=== PATIENT | female | born 1995 | race American Indian/Alaskan Native ===

== ENCOUNTER 2019-05-21 07:51 | Observation (INO) | payer MEDICAID, OTHER ==
[2019-05-21] MEDS ORDERED: HYDROmorphone 1 MG/1 ML INJ IV ONE (08:23)
[2019-05-21] MEDS ORDERED: ONDANSETRON 4 MG/2 ML INJ IV ONE ×2 (08:23→13:51)
[2019-05-21] MEDS ORDERED: SODIUM CHLORIDE 0.9% 1000 ML 1,000 ML ONE (08:33)
[2019-05-21] MEDS ORDERED: SODIUM CHLORIDE 0.9% 1000 ML 1,000 ML IV ONE ×2 (08:46→14:45)
[2019-05-21 09:14] LABS: Basophils # (Auto) 0.1 K/mm3 (0.0-0.1); Basophils % (Auto) 0.4 % (0.0-1.8); Eosinophils # (Auto) 0.1 K/mm3 (0.0-0.4); Eosinophils % (Auto) 0.4 % (0.0-4.3); Hematocrit 38.6 % (30.3-42.9); Hemoglobin 13.4 gm/dl (10.1-14.3); Lymphocytes # (Auto) 1.6 K/mm3 (1.2-5.4); Lymphocytes % (Auto) 10.9 % (13.4-35.0); Mean Corpuscular HGB Conc 35 % (30-34); Mean Corpuscular Volume 91 fl (79-97); Monocytes # (Auto) 0.7 K/mm3 (0.0-0.8); Monocytes % (Auto) 4.8 % (0.0-7.3); Platelet Count 311 K/mm3 (140-440); Red Blood Count 4.27 M/mm3 (3.65-5.03); Red Cell Distribution Width 13.6 % (13.2-15.2)
[2019-05-21 09:37] LABS: Alanine Aminotransferase 12 units/L (7-56); Albumin 5.3 g/dL (3.9-5); BUN/Creatinine Ratio 23; Blood Urea Nitrogen 16 mg/dL (7-17); Calcium 9.7 mg/dL (8.4-10.2); Hemolysis Index 15
--- NOTE | 2019-05-21 12:37 | Ultrasound Report ---
ULTRASOUND ABDOMEN, COMPLETE INDICATION: abd pain COMPARISON: None available. FINDINGS: Pancreas: Normal. Abdominal Aorta: Normal. IVC: Normal. Liver: Normal. Gallbladder: There are several small stones in the gallbladder. There is borderline gallbladder wall edema. No pericholecystic fluid. Bile ducts: Normal. Common Bile Duct measures 3 mm. Right Kidney: Normal. Left Kidney: Normal. Spleen: Normal. Free fluid: None. Additional Findings: None. IMPRESSION: 1. Cholelithiasis with borderline gallbladder wall edema. This could be seen in the setting of cholec ystitis. However, no pericholecystic fluid or common duct dilatation. Signer Name: Fawad Davison MD Signed: 05/21/2019 12:33 PM Workstation Name: [id number]
[2019-05-21 12:50] LABS: Bacteria,Urine 1+ /HPF (Negative); Bilirubin,Urine NEG (Negative); Blood,Urine LG (Negative); Color,Urine Yellow (Yellow); Mucus,Urine FEW /HPF; Protein,Urine <15 mg/dL mg/dL (Negative); Urobilinogen,Urine < 2.0 mg/dL (<2.0)
[2019-05-21 12:51] LABS: HCG Qualitative,Urine Negative (Negative)
[2019-05-21] MEDS ORDERED: PIPERACIL/TAZOBACTA 4.5/NS 100 4.5 GM/100 ML VIAL IV ONE (13:15)
[2019-05-21] MEDS ORDERED: MORPHINE 4 MG/1 ML INJ IV ONE (13:51)
--- NOTE | 2019-05-21 14:40 | Emergency Department Report ---
HPI - General Chief Complaint: Abdominal Pain Time Seen by Provider: 05/21/19 14:29 - HPI HPI: Room 32 The patient is a 23-year-old female presenting with a chief complaint of abdominal pain. The patient states after eating [place] dinner last night she developed some pain in the right upper quadrant and left upper quadrant of her abdomen described as a pressure in nature. Patient admits to nausea and vomiting but denies diarrhea. Patient missed a subjective fever. The patient has history of gallstones a states that the pain feels consistent with previous bouts but it is much worse than it's been in the past. Patient was administered to pain medication prior to my evaluation and currently gives her pain a score of 0/10 Location: [See above] Duration: [See above] Quality: [See above] Severity: [See above] Timing: [See above] Context: [See above] Modifying factors: [See above] Associated signs and symptoms: [see above] ED Past Medical Hx - Past Medical History Previous Medical History?: Yes Additional medical history: gallbladder - Surgical History Past Surgical History?: No - Family History Family history: no significant - Social History Smoking Status: Current Every Day Smoker (1/7 pack per day) Substance Use Type: None (denies illicit drug use), Alcohol (frequently) ED Review of Systems ROS: Stated complaint: GALL BLADDER/PAIN Other details as noted in HPI Constitutional: fever (subjective) Eyes: denies: eye pain ENT: denies: throat pain Respiratory: no symptoms reported Cardiovascular: denies: chest pain Endocrine: no symptoms reported Gastrointestinal: abdominal pain, nausea, vomiting. denies: diarrhea Genitourinary: denies: dysuria Musculoskeletal: denies: back pain Neurological: denies: headache Physical Exam - Physical Exam Vital Signs: Vital Signs 05/21/19 05/21/19 08:21 08:49 Pulse Rate 108 H Respiratory 22 Rate O2 Sat by Pulse 96 Oximetry Physical Exam: GENERAL: The patient is well-developed well-nourished female lying on stretcher not appearing to be in acute distress. [] HEENT: Normocephalic. Atraumatic. Extraocular motions are intact. Patient has moist mucous membranes. NECK: Supple. Trachea midline CHEST/LUNGS: Clear to auscultation. There is no respiratory distress noted. HEART/CARDIOVASCULAR: Regular. There is no tachycardia. There is no gallop rub or murmur. ABDOMEN: Abdomen is soft, with tenderness to palpation in the right upper q uadrant. Patient has normal bowel sounds. There is no abdominal distention. SKIN: There is no rash. There is no edema. There is no diaphoresis. NEURO: The patient is awake, alert, and oriented. The patient is cooperative. The patient has normal speech MUSCULOSKELETAL: There is no evidence of acute injury. ED Course Vital Signs 05/21/19 05/21/19 08:21 08:49 Pulse Rate 108 H Respiratory 22 Rate O2 Sat by Pulse 96 Oximetry - Consultations Consultation #1: 05/21/19 14:39 Surgery paged 05/21/19 14:[address] De Oliveira- requests patient be admitted by hospitalist and if tolerates may have a clear liquid diet until instructed otherwise ED Medical Decision Making - Lab Data Result diagrams: 05/21/19 08:37 05/21/19 08:37 Laboratory Tests 05/21/19 05/21/19 05/21/19 08:37 08:37 11:15 WBC 14.4 H RBC 4.27 Hgb 13.4 Hct 38.6 MCV 91 MCH 31 MCHC 35 H RDW 13.6 Plt Count 311 Lymph % (Auto) 10.9 L [place] % (Auto) 4.8 Eos % (Auto) 0.4 Baso % (Auto) 0.4 Lymph # 1.6 [place] # 0.7 Eos # 0.1 Baso # 0.1 Seg Neutrophils % 83.5 H Seg Neutrophils # 12.0 H Sodium 143 Potassium 3.7 Chloride 103.3 Carbon Dioxide 19 L Anion Gap 24 BUN 16 Creatinine 0.7 Estimated GFR > 60 BUN/Creatinine Ratio 23 Glucose 120 H Calcium 9.7 Total Bilirubin 0.20 AST 20 ALT 12 Alkaline Phosphatase 42 Total Protein 7.8 Albumin 5.3 H Albumin/Globulin Ratio 2.1 Urine Color Yellow Urine Turbidity Clear Urine pH 7.0 Ur Specific [place] 1.018 Urine Protein <15 mg/dl Urine Glucose (UA) Neg Urine Ketones 20 Urine Blood Lg Urine Nitrite Neg Urine Bilirubin Neg Urine Urobilinogen < 2.0 Ur Leukocyte Esterase Neg Urine WBC (Auto) 2.0 Urine RBC (Auto) 2.0 U Epithel Cells (Auto) 3.0 Urine Bacteria (Auto) 1+ Urine Mucus Few Urine HCG, Qual 05/21/19 11:15 WBC RBC Hgb Hct MCV MCH MCHC RDW Plt Count Lymph % (Auto) [place] % (Auto) Eos % (Auto) Baso % (Auto) Lymph # [place] # Eos # Baso # Seg Neutrophils % Seg Neutrophils # Sodium Potassium Chloride Carbon Dioxide Anion Gap BUN Creatinine Estimated GFR BUN/Creatinine Ratio Glucose Calcium Total Bilirubin AST ALT Alkaline Phosphatase Total Protein Albumin Albumin/Globulin Ratio Urine Color Urine Turbidity Urine pH Ur Specific [place] Urine Protein Urine Glucose (UA) Urine Ketones Urine Blood Urine Nitrite Urine Bilirubin Urine Urobilinogen Ur Leukocyte Esterase Urine WBC (Auto) Urine RBC (Auto) U Epithel Cells (Auto) Urine Bacteria (Auto) Urine Mucus Urine HCG, Qual Negative - Radiology Data Radiology results: report reviewed (right upper quadrant ultrasound), image re viewed (right upper quadrant ultrasound) [facility] [address] [place] [address] Ultrasound Report Signed Patient: CAROL MORALES MR#: [id number] : 1995 Acct:[id number] Age/Sex: 23 / F ADM Date: 05/21/19 Loc: ED Attending Dr: Ordering Physician: ED MD EVELYN Date of Service: 05/21/19 Procedure(s): US abdomen complete Accession Number(s): [id number] cc: ED MD EVELYN ULTRASOUND ABDOMEN, COMPLETE INDICATION: abd pain COMPARISON: None available. FINDINGS: Pancreas: Normal. Abdominal Aorta: Normal. IVC: Normal. Liver: Normal. Gallbladder: There are several small stones in the gallbladder. There is borderline gallbladder wall edema. No pericholecystic fluid. Bile ducts: Normal. Common Bile Duct measures 3 mm. Right Kidney: Normal. Left Kidney: Normal. Spleen: Normal. Free fluid: None. Additional Findings: None. IMPRESSION: 1. Cholelithiasis with borderline gallbladder wall edema. This could be seen in the setting of cholecystitis. However, no pericholecystic fluid or common duct dilatation. Signer Name: Fawad Davison MD Signed: 05/21/2019 12:33 PM Workstation Name: [id number] Transcribed By: HARMAN Dictated By: Fawad Davison MD Electronically Authenticated By: Fawad Davison MD Signed Date/Time: 05/21/19 1233 DD/ 1231 TD/TT: - Differential Diagnosis cholecystitis, cholelithiasis Critical care attestation.: If time is entered above; I have spent that time in minutes in the direct care of this critically ill patient, excluding procedure time. ED Disposition Clinical Impression: Acute cholecystitis, Acute abdominal pain Disposition: OP ADMIT IP TO THIS HOSP Is pt being admited?: Yes Does the pt Need Aspirin: No Condition: Fair Instructions: Abdominal Pain (ED) Referrals: PRIMARY CARE,MD [Primary Care Provider] - 3-5 Days Time of Disposition: 14:47 (hospitalist paged (Dr Sun))
--- NOTE | 2019-05-21 14:52 | History and Physical Report ---
History of Present Illness Chief complaint: My stomach hurts History of present illness: 23-year-old female with nicotine dependence presents to emergency department for evaluation. Patient states that she has experienced pain in her abdomen over the past 1 day with persistently worsening symptoms over the same timeframe. Patient states that after eating [place] dinner on yesterday she experienced pain in her abdomen that is localized to the right upper quadrant. Patient states that her pain initially was 4/10 but has progressively worsened to 10/10. Patient states that pain is intermittent in nature, associated with nausea, multiple episodes of vomiting, and is worsened with meals. Patient transported to [facility] via private vehicle. Patient seen and evaluated in the emergency department. Patient labs and imaging studies reviewed. Patient and is lying in bed complaining of abdominal pain and is in mild distress. Patient is unable to tolerate oral diet without worsening abdominal pain. Patient is unable to conduct a straight leg raise without worsening abdominal pain. Patient found to have evidence of acute cholecystitis. Surgery team consulted. Patient is initiated on IV antibiotic therapy. Patient admitted to surgical floor for medical management due to high risk of worsening symptoms. Patient denies fever, chills, chest pain, palpitations, bright red blood per rectum, ingestion of food/water from new or different sources. No prior admission for review. No medication listed at time of admission for reconciliation. Past History Past Medical History: No medical history, other (reviewed) Past Surgical History: No surgical history, Other (reviewed) Social history: single, smoking. denies: alcohol abuse, prescription drug abuse Family history: no significant family history (Reviewed) Medications and Allergies Allergies Allergy/AdvReac Type Severity Reaction Status Date / Time No Known Allergies Allergy Verified 05/21/19 08:10 Active Meds: Active Medications Sodium Chloride (Nacl 0.9% 1000 Ml) 1,000 mls @ 125 mls/hr IV ONCE ONE Stop: 05/21/19 22:44 Review of Systems Constitutional: no weight loss, no weight gain, no fever, no chills Ears, nose, mouth and throat: no ear pain, no ear discharge, no decreased hearing, no nose pain, no nasal discharge Breasts: no change in shape, no swelling, no mass Cardiovascular: no chest pain, no orthopnea, no palpitations, no rapid/irregular heart beat, no edema Respiratory: no cough, no cough with sputum, no excessive sputum, no hemoptysis, no shortness of breath Gastrointestinal: abdominal pain, nausea, vomiting, no diarrhea, no BRBPR, no me emma Genitourinary Female: no pelvic pain, no flank pain, no menorrhagia, no dysuria, no urinary frequency Rectal: no pain, no incontinence, no bleeding Musculoskeletal: no neck stiffness, no neck pain, no shooting arm pain, no arm numbness/tingling, no low back pain, no shooting leg pain Integumentary: no rash, no pruritis, no redness, no sores, no wounds Neurological: no transient paralysis, no paralysis, no weakness, no parathesias, no numbness, no tingling, no seizures Psychiatric: no anxiety, no memory loss, no change in sleep habits, no h ypersomnia, no suicidal ideation Endocrine: no cold intolerance, no heat intolerance, no polyphagia, no polydipsia, no polyuria, no nocturia, no excessive sweating Hematologic/Lymphatic: no easy bruising, no easy bleeding, no lymphadenopathy, no lymphedema Allergic/Immunologic: no urticaria, no allergic rhinitis, no anaphylaxis Exam - Constitutional Vitals: Temp Pulse Resp BP Pulse Ox 108 H 22 96 05/21/19 08:21 05/21/19 08:49 05/21/19 08:21 General appearance: Present: mild distress - EENT Eyes: Present: PERRL ENT: hearing intact, clear oral mucosa - Neck Neck: Present: supple, normal ROM - Respiratory Respiratory effort: normal Respiratory: bilateral: CTA - Cardiovascular Heart Sounds: Present: S1 & S2. Absent: rub, click - Extremities Extremities: pulses symmetrical, No edema Peripheral Pulses: within normal limits - Abdominal General gastrointestinal: Present: soft, tender, non-distended, normal bowel sounds. Absent: hypoactive bowel sounds, absent bowel sounds, splenomegaly Localized gastrointestinal: tender: diffuse Female genitourinary: Present: normal - Rectal Rectal Exam: normal exam-external/orifice - Integumentary Integumentary: Present: clear, warm, dry - Musculoskeletal Musculoskeletal: gait normal, strength equal bilaterally - Psychiatric Psychiatric: appropriate mood/affect, intact judgment & insight - Neurologic Neurologic: CNII-XII intact, moves all extremities Results - Labs CBC & Chem 7: 05/21/19 08:37 05/21/19 08:37 Labs: Abnormal lab results 05/21/19 05/21/19 Range/Units 08:37 08:37 WBC 14.4 H (4.5-11.0) K/mm3 MCHC 35 H (30-34) % Lymph % (Auto) 10.9 L (13.4-35.0) % Seg Neutrophils % 83.5 H (40.0-70.0) % Seg Neutrophils # 12.0 H (1.8-7.7) K/mm3 Carbon Dioxide 19 L (22-30) mmol/L Glucose 120 H (65-100) mg/dL Albumin 5.3 H (3.9-5) g/dL Assessment and Plan - Patient Problems (1) Acute cholecystitis Current Visit: Yes Status: Acute Plan to address problem: IV antibiotic therapy, IV fluid resuscitation therapy, abdominal ultrasound, general surgery team consulted in the emergency department, bowel rest pain control. (2) Nicotine dependence Current Visit: Yes Status: Acute Qualifiers: Nicotine product type: cigarettes Plan to address problem: Smoking cessation counseling, supportive care, +15 minutes. (3) SIRS (systemic inflammatory response syndrome) Current Visit: Yes Status: Acute Plan to address problem: IV antibiotic therapy, IV fluids with ice resuscitation therapy, CBC, CMP, chest x-ray, urinalysis. (4) Acute abdominal pain Current Visit: Yes Status: Acute Plan to address problem: surgery team consulted in the emergency department, serial abdominal exams, abdominal ultrasound, bowel rest, pain control. (5) DVT prophylaxis Current Visit: Yes Status: Acute Plan to address problem: SCD to BLE while in bed, Pt ambulatory
[2019-05-21] MEDS ORDERED: ONDANSETRON 4 MG/2 ML INJ IV PRN (14:53)
[2019-05-21] MEDS ORDERED: ACETAMINOPHEN 325 MG TAB PO PRN (14:53)
[2019-05-21] MEDS ORDERED: ALBUTEROL 2.5 MG/3 ML NEBU IH PRN (14:53)
[2019-05-21] MEDS ORDERED: SODIUM CHLORIDE 0.45% 1000 ML 1,000 ML IV SCH (15:00)
[2019-05-21] MEDS ORDERED: MORPHINE 2 MG/1 ML INJ ONE (18:11)
[2019-05-21] MEDS: MORPHINE 2 MG/1 ML INJ IV PRN ×2 (18:15→23:22)
[2019-05-21] MEDS ORDERED: FAMOTIDINE 20 MG/2 ML INJ IV SCH (22:00)
[2019-05-21] MEDS: metroNIDAZOLE/NS 500 MG/100 ML 500 MG/100 ML BAG IV SCH (23:03)
[2019-05-22] MEDS: MORPHINE 2 MG/1 ML INJ IV PRN ×3 (03:45→14:29)
[2019-05-22 06:15] LABS: Basophils % (Auto) 0.4 % (0.0-1.8); Eosinophils % (Auto) 0.6 % (0.0-4.3); Hematocrit 32.6 % (30.3-42.9); Hemoglobin 11.3 gm/dl (10.1-14.3); Lymphocytes # (Auto) 2.1 K/mm3 (1.2-5.4); Lymphocytes % (Auto) 28.4 % (13.4-35.0); Mean Corpuscular HGB Conc 35 % (30-34); Mean Corpuscular Volume 91 fl (79-97); Monocytes # (Auto) 0.7 K/mm3 (0.0-0.8); Monocytes % (Auto) 8.9 % (0.0-7.3); Platelet Count 224 K/mm3 (140-440); Red Blood Count 3.58 M/mm3 (3.65-5.03); Red Cell Distribution Width 13.4 % (13.2-15.2)
[2019-05-22] MEDS: metroNIDAZOLE/NS 500 MG/100 ML 500 MG/100 ML BAG IV SCH (06:26)
[2019-05-22 06:43] LABS: Alanine Aminotransferase 9 units/L (7-56); Albumin 3.9 g/dL (3.9-5); BUN/Creatinine Ratio 15; Blood Urea Nitrogen 9 mg/dL (7-17); Calcium 8.4 mg/dL (8.4-10.2); Hemolysis Index 8
--- NOTE | 2019-05-22 08:21 | Consultation ---
History of Present Illness Consult date: 05/22/19 Reason for consult: abdominal pain Requesting physician: LEWIS AMIN Chief complaint: upper abdominal pain - History of present illness History of present illness: 23yo F o/w healthy, with a 3 year history of recurrent upper abdominal pain R>L that occurs primarily at night. Pain can last for up to 12 hours. Does not happen after lunch. Occasional pain in back. Does not think she has any heartburn sx's. No F/C. +N/V. +bloating. No diarrhea. Definitely occurs with spicy meals. She presents now after having another attack after [place] dinner. Of note, about 8 months ago, was given a 1 week supply of antacid medication. Sx's significantly improved. Sx's returned once the medication ran out. Her symptoms were worse when she used to drink alcohol. Past History Past Medical History: No medical history, other (reviewed) Past Surgical History: No surgical history, Other (reviewed) Social history: single, smoking (1 pk/week). denies: alcohol abuse, prescription drug abuse Family history: no significant family history (Reviewed), other (Aunt had her gallbladder removed.) Medications and Allergies Allergies Allergy/AdvReac Type Severity Reaction Status Date / Time No Known Allergies Allergy Verified 05/21/19 08:10 Home Medications Medication Instructions Recorded Confirmed Last Taken Type No Known Home Medications [No 05/22/19 05/22/19 Unknown History Reported Home Medications] Active Meds: Active Medications Acetaminophen (Tylenol) 650 mg PO Q4H PRN PRN Reason: Pain MILD(1-3)/Fever >100.5/MOTA Al Hydrox/Mg Hydrox/Simethicone (Alum-Mag Hydrox-Simeth [phone]/5ml) 30 ml PO Q4H PRN PRN Reason: Indigestion Albuterol (Proventil) 2.5 mg IH Q4HRT PRN PRN Reason: Shortness Of Breath Sodium Chloride (Nacl 0.45% 1000 Ml) 1,000 mls @ 75 mls/hr IV DIRECT SHAWNA Last Admin: 05/22/19 03:45 Dose: 75 mls/hr Documented by: Morphine Sulfate (Morphine) 2 mg IV Q4H PRN PRN Reason: Pain, Moderate (4-6) Last Admin: 05/22/19 03:45 Dose: 2 mg Documented by: Ondansetron HCl (Zofran) 4 mg IV Q8H PRN PRN Reason: Nausea And Vomiting Pantoprazole Sodium (Protonix) 20 mg PO BID [facility] Sodium Chloride (Sodium Chloride Flush Syringe 10 Ml) 10 ml IV BID [facility] Last Admin: 05/21/19 23:33 Dose: 10 ml Documented by: Sodium Chloride (Sodium Chloride Flush Syringe 10 Ml) 10 ml IV PRN PRN PRN Reason: LINE FLUSH Stop: 05/31/19 14:52 Review of Systems - Constitutional no fever, no chills, no weakness, no chronic pain - Cardiovascular no chest pain, no shortness of breath - Respiratory no cough - Gastrointestinal abdominal pain, nausea, loss of appetite, dyspepsia/bloating, no vomiting, no change in bowel habits, no hematemesis, no coffee ground emesis, no BRBPR, no melena, no hematochezia, no heartburn - Muskuloskeletal no low back pain - Integumentary no pruritis, no wounds, no jaundice Exam Vital Signs Pulse Pulse Ox 108 H 96 05/21/19 08:21 05/21/19 08:21 - General physical appearance Positive: no distress, no pain, other (healthy appearing young lady. pleasant) - Eyes Positive: normal occular movement. Negative: icteric - Respiratory Positive: normal expansion, normal respiratory effort, clear to auscultation - Cardiovascular Rhythm: regular - Abdomen Abdomen: Present: soft, tender (mild in RUQ only), bowel sounds hypoactive. Absent: distended, masses, rebound, guarding, rigid, wound, surgical scars - Neurologic Neurologic: alert and oriented to time, place and person, motor strength and sensation are grossly intact - Psychiatric Psychiatric: appropriate mood/affect, intact judgment & insight, cooperative Results - Labs 05/22/19 05:50 05/22/19 05:50 Abnormal lab results 05/21/19 05/21/19 05/22/19 Range/Units 08:37 08:37 05:50 WBC 14.4 H (4.5-11.0) K/mm3 RBC 3.58 L (3.65-5.03) M/mm3 MCHC 35 H 35 H (30-34) % Lymph % (Auto) 10.9 L (13.4-35.0) % [place] % (Auto) 8.9 H (0.0-7.3) % Seg Neutrophils % 83.5 H (40.0-70.0) % Seg Neutrophils # 12.0 H (1.8-7.7) K/mm3 Potassium (3.6-5.0) mmol/L Chloride (98-107) mmol/L Carbon Dioxide 19 L (22-30) mmol/L Creatinine (0.7-1.2) mg/dL Glucose 120 H (65-100) mg/dL Alkaline Phosphatase (35-129) units/L Albumin 5.3 H (3.9-5) g/dL 05/22/19 Range/Units 05:50 WBC (4.5-11.0) K/mm3 RBC (3.65-5.03) M/mm3 MCHC (30-34) % Lymph % (Auto) (13.4-35.0) % [place] % (Auto) (0.0-7.3) % Seg Neutrophils % (40.0-70.0) % Seg Neutrophils # (1.8-7.7) K/mm3 Potassium 3.5 L (3.6-5.0) mmol/L Chloride 108.1 H (98-107) mmol/L Carbon Dioxide 19 L (22-30) mmol/L Creatinine 0.6 L (0.7-1.2) mg/dL Glucose (65-100) mg/dL Alkaline Phosphatase 33 L (35-129) units/L Albumin (3.9-5) g/dL Diabetes panel 05/21/19 05/22/19 Range/Units 08:37 05:50 Sodium 143 141 (137-145) mmol/L Potassium 3.7 3.5 L (3.6-5.0) mmol/L Chloride 103.3 108.1 H (98-107) mmol/L Carbon Dioxide 19 L 19 L (22-30) mmol/L BUN 16 9 (7-17) mg/dL Creatinine 0.7 0.6 L (0.7-1.2) mg/dL Glucose 120 H 98 (65-100) mg/dL Calcium 9.7 8.4 (8.4-10.2) mg/dL AST 20 13 (5-40) units/L ALT 12 9 (7-56) units/L Alkaline Phosphatase 42 33 L (35-129) units/L Total Protein 7.8 6.3 (6.3-8.2) g/dL Albumin 5.3 H 3.9 (3.9-5) g/dL Calcium panel 05/21/19 05/22/19 Range/Units 08:37 05:50 Calcium 9.7 8.4 (8.4-10.2) mg/dL Albumin 5.3 H 3.9 (3.9-5) g/dL Pituitary panel 05/21/19 05/22/19 Range/Units 08:37 05:50 Sodium 143 141 (137-145) mmol/L Potassium 3.7 3.5 L (3.6-5.0) mmol/L Chloride 103.3 108.1 H (98-107) mmol/L Carbon Dioxide 19 L 19 L (22-30) mmol/L BUN 16 9 (7-17) mg/dL Creatinine 0.7 0.6 L (0.7-1.2) mg/dL Glucose 120 H 98 (65-100) mg/dL Calcium 9.7 8.4 (8.4-10.2) mg/dL Adrenal panel 05/21/19 05/22/19 Range/Units 08:37 05:50 Sodium 143 141 (137-145) mmol/L Potassium 3.7 3.5 L (3.6-5.0) mmol/L Chloride 103.3 108.1 H (98-107) mmol/L Carbon Dioxide 19 L 19 L (22-30) mmol/L BUN 16 9 (7-17) mg/dL Creatinine 0.7 0.6 L (0.7-1.2) mg/dL Glucose 120 H 98 (65-100) mg/dL Calcium 9.7 8.4 (8.4-10.2) mg/dL Total Bilirubin 0.20 0.50 (0.1-1.2) mg/dL AST 20 13 (5-40) units/L ALT 12 9 (7-56) units/L Alkaline Phosphatase 42 33 L (35-129) units/L Total Protein 7.8 6.3 (6.3-8.2) g/dL Albumin 5.3 H 3.9 (3.9-5) g/dL - Imaging US - abdomen: report reviewed, image reviewed Assessment and Plan - Patient Problems (1) Acute abdominal pain Current Visit: Yes Status: Acute Plan to address problem: Pt stable. She is feeling better with minimal RUQ pain now. Her symtoms overlap between gallbladder pathology and peptic ulcer disease. The report of near complete resolution of her symptoms with 1 week of antacid therapy suggests more PUD. Options given for surgery vs medical therapy. Pt would like to try medical therapy first. Of note, her labs and US are more suggestive of symptomatic cholelithiasis/chronic cholecystitis at most. No need for Abx at this time. Rec: 1) Advance diet 2) Schedule PPI BID until she f/u's in office. Please give 1 month script. 3) stop smoking 4) avoid foods that are known to trigger pain for her 5) d/c home when able to tolerate diet 6) f/u in about 1 week Please call with questions. time=30min
[2019-05-22] MEDS ORDERED: ALUM-MAG HYDROXIDE-SIMETHICONE 200-200-20MG/5ML ORAL LIQD 30 ML PO PRN (09:00)
--- NOTE | 2019-05-22 09:58 | Discharge Summary ---
Providers - Providers Date of Admission: 05/21/19 14:53 Date of discharge: 05/22/19 Attending physician: SALAZAR MCCULLOUGH 05/21/19 14:50 Consult to Physician [CONS] Urgent Comment: Consulting Provider: CRISTIAN NICHOLE Physician Instructions: Reason For Exam: cholecystitis Primary care physician: SENIOR SERVICE AIDE Hospitalization Reason for admission: abd pain Condition: Fair Hospital course: 23yo F o/w healthy, with a 3 year history of recurrent upper abdominal pain R>L that occurs primarily at night. Pain reportedly can last for up to 12 hours and definitely occurs with spicy meals. She presented to ER after having another attack after [place] dinner. Surgery saw pt in consultation and felt her symtoms overlap between gallbladder pathology and peptic ulcer disease. The report of near complete resolution of her symptoms with 1 week of antacid therapy suggests more PUD. Options given for surgery vs medical therapy. Pt would like to try medical therapy first. Of note, her labs and US are more suggestive of symptomatic cholelithiasis/chronic cholecystitis at most. No need for Abx at this time. Dedicated discharge time 35 minutes Disposition: DC-01 TO HOME OR SELFCARE Time spent for discharge: 35 - Discharge Diagnoses (1) Chronic cholecystitis Status: Acute (2) PUD (peptic ulcer disease) Status: Acute (3) Acute abdominal pain Status: Acute Core Measure Documentation - Palliative Care Palliative Care/ Comfort Measures: Not Applicable - Core Measures Any of the following diagnoses?: none Exam - Constitutional Vitals: Temp Pulse Resp BP Pulse Ox 98.0 F 60 18 109/69 99 05/22/19 08:02 05/22/19 08:02 05/22/19 08:02 05/22/19 08:02 05/22/19 08:02 General appearance: Present: no acute distress, well-nourished - EENT Eyes: Present: PERRL ENT: hearing intact, clear oral mucosa - Neck Neck: Present: supple, normal ROM - Respiratory Respiratory effort: normal Respiratory: bilateral: CTA - Cardiovascular Heart Sounds: Present: S1 & S2. Absent: rub, click - Extremities Extremities: pulses symmetrical, No edema Peripheral Pulses: within normal limits - Abdominal General gastrointestinal: Present: soft, non-tender, non-distended, normal bowel sounds Female genitourinary: Present: normal - Integumentary Integumentary: Present: clear, warm, dry - Musculoskeletal Musculoskeletal: gait normal, strength equal bilaterally - Psychiatric Psychiatric: appropriate mood/affect, intact judgment & insight - Neurologic Neurologic: CNII-XII intact, moves all extremities Plan Activity: advance as tolerated Weight Bearing Status: Weight Bear as Tolerated Diet: regular Additional Instructions: Stop smoking and avoid foods that are known to trigger pain for her Follow up with: PRIMARY CAREMD [Primary Care Provider] - 3-5 Days CRISTIAN NICHOLE MD [Staff Physician] - 7 Days Prescriptions: Pantoprazole [Protonix TAB] 20 mg PO BID #60 tablet.
[2019-05-22] MEDS ORDERED: PANTOPRAZOLE 20 MG TAB PO SCH (10:00)
[2019-05-22 12:28] VITALS: BP 103/52
== END 2019-05-22 16:00 | disposition home or self-care (01) ==
LOC: ED 07:51 → 3A 14:53 → 3B-SURG 17:33
PROVIDERS: ADMIT Internal Medicine; ATTEND Hospitalist
DX: K81.0 Acute cholecystitis (principal); K81.1 Chronic cholecystitis; K27.9 Peptic ulcer, site unspecified, unspecified as acute or chronic, without hemorrhage or perforation; R11.2 Nausea with vomiting, unspecified; R65.10 Systemic inflammatory response syndrome (SIRS) of non-infectious origin without acute organ dysfunction; F17.210 Nicotine dependence, cigarettes, uncomplicated
CPT/HCPCS: 36415; 76700; 80053; 81001; 81025; 83690; 85025; 96361; 96365; 96366; 96367; 96375; 96376; 99284; G0378; J1170; J2270; J2405; J2543; J7030